=== PATIENT | female | born 1940 | race Caucasian/White ===

== ENCOUNTER → 2016-08-31 | Outpatient (CLI) | payer OTHER, BC ==
[2016-09-03 06:51] LABS: HEMOGLOBIN A1C 7.97 % (4.2-6.0); MEAN BLOOD GLUCOSE (CALC) 179.401 mg/dL
== END ==
LOC: MOB LAB 10:52
DX: E11.9 Type 2 diabetes mellitus without complications (principal); E55.9 Vitamin D deficiency, unspecified; G70.00 Myasthenia gravis without (acute) exacerbation; M81.0 Age-related osteoporosis without current pathological fracture; G62.9 Polyneuropathy, unspecified; J44.9 Chronic obstructive pulmonary disease, unspecified; F32.9 Major depressive disorder, single episode, unspecified
CPT/HCPCS: 82306; 83036; 99213; G0463

== ENCOUNTER → 2016-09-15 | Outpatient (CLI) | payer OTHER, BC | LOC: MMPC 11:11 | PROVIDERS: ATTEND Surgery | DX: K21.9 Gastro-esophageal reflux disease without esophagitis (principal); R13.19 Other dysphagia; K44.9 Diaphragmatic hernia without obstruction or gangrene | CPT/HCPCS: 99212; G0463 ==

== ENCOUNTER 2016-09-19 09:05 | Day surgery (SDC) | payer OTHER, BC ==
[~2016-09-19 09:05] MED LIST: LIDOCAINE 2% VISCOUS(20 MG/1 ML) - 15 ML UD CUP PO ONE; LIDOCAINE HCL/PF 2% (20 MG/ML) - 5 ML SYRINGE ONE; LIDOCAINE W/ SODIUM BICARB 0.5 ML SYR ONE; Lactated Ringers 1,000 ML PRIMARY IV ONE; MIDAZOLAM 5 MG/1 ML ONE; fentaNYL Inj 100 MCG/2 ML VIAL ONE
--- NOTE | 2016-09-19 10:59 | GEN.OPNOTE ---
EGD Operative Note Surgery Date: 09/19/16 Preoperative Diagnosis: Myasthenia gravis. Dysphagia. GERD. Hiatal hernia. Postoperative Diagnosis: Same. No stricture. Procedure: Esophagogastroduodenoscopy with biopsy. Surgeon: Steve Camacho MD Anesthesia Provider: Sheldon Buthcer CRNA Anesthesia Type: MAC Indications: See preoperative diagnosis. Findings: Esophagus: [Slightly tortuous. No stricture.] GE Junction : [Small hiatal hernia. No significant inflammation.] Fundus : [A few fundic gland polyps.] Body : [A few fundic gland polyps.] Prepyloric : [Mild inflammation.] Small Intestine : [Normal.] A lubricated flexible upper endoscope was inserted and passed through the esophagus and stomach into the duodenum. The duodenum and duodenal bulb were unremarkable. The pyloric channel was widely patent. There was some mild inflammation in the antrum. Multiple biopsies were taken. Hemostasis was assured. The scope was retroflexed. There are a few fundic gland polyps. There was a small 2-3 cm hiatal hernia. The scope was straightened. Air was aspirated. The scope was withdrawn into the distal esophagus. Biopsies were taken at the GE junction with her history of dysphagia and reflux. She is also on a daily proton pump inhibitor. Hemostasis was assured. The scope was withdrawn through the remainder of a normal-appearing esophagus. Specifically there were no strictures. The scope was drawn through the hypopharynx under suction completing the procedure. Patient tolerated the procedure well without complication. She was taken to outpatient surgery in stable condition. Follow-up will be with my office on an as-needed basis. We will call the biopsy results and plan therapy and follow-up accordingly. Patient should see her neurologist and consider a swallow evaluation. This was discussed with the patient and her daughter. Estimated Blood Loss (mL): 1 Fluids: 300 mL of crystalloid. Pathology: Antral biopsies and distal esophageal biopsies sent for pathologic analysis. Complications: None.
[2016-09-19 11:01] VITALS: RESP 14
[2016-09-19 13:21] VITALS: TEMP 97.9
== END 2016-09-19 12:16 | disposition home or self-care (01) ==
LOC: SDSC 09:05
PROVIDERS: ATTEND Surgery
DX: K21.9 Gastro-esophageal reflux disease without esophagitis (principal); R13.10 Dysphagia, unspecified; K44.9 Diaphragmatic hernia without obstruction or gangrene; G70.00 Myasthenia gravis without (acute) exacerbation
CPT/HCPCS: 43239; J2704; J3010; J2001; J2250; J7120

== ENCOUNTER → 2016-09-28 | Outpatient (CLI) | payer OTHER, BC ==
--- NOTE | 2016-09-28 16:02 | DI ---
LEFT WRIST, 09/28/2016 2:37 PM: Clinical History: Left wrist pain. Previous Exam: 11/12/2015; 12/26/2015. 3 views are submitted. The patient is status post resection of the trapezium, scaphoid, lunate, and t riquetrum bones with placement of a ligature between the first and second metacarpal bones. 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 The distal radius and ulna are unremarkable. There is osteoporosis. Readin. Status post resection of the proximal row of the carpal bones with placement of a ligature betwee n the base of the first and second metacarpal bones. 2. Osteoporosis.
--- NOTE | 2016-09-28 16:08 | DI ---
LEFT THUMB EXAM, 09/28/2016 2:37 PM: Clinical History: Left thumb pain. Previous Exam: None at this facility. Comparison is made with the left wrist exam obtained today. 3 views are submitted. There is no acute soft tissue, osseous, or joint abnormality. Mild degenerativ e arthritic changes are present in the metacarpophalangeal joint and the IP joint of the thumb. As pr eviously noted, there has been resection of the proximal row of the carpal bones with placement of a ligature between the base of the first and second metacarpals. There is osteoporosis. Readin. 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 2. Osteoporosis.
== END ==
LOC: ORTHO 14:48
PROVIDERS: ATTEND Orthopaedic Surgery
DX: M25.532 Pain in left wrist (principal); M79.645 Pain in left finger(s); M18.12 Unilateral primary osteoarthritis of first carpometacarpal joint, left hand; Z98.890 Other specified postprocedural states
CPT/HCPCS: 73110; 73140

== ENCOUNTER → 2016-10-11 | Outpatient (CLI) | payer OTHER, BC | LOC: MMPC 11:11 | DX: G70.00 Myasthenia gravis without (acute) exacerbation (principal); E53.8 Deficiency of other specified B group vitamins; G62.9 Polyneuropathy, unspecified; J44.9 Chronic obstructive pulmonary disease, unspecified; F32.9 Major depressive disorder, single episode, unspecified; E11.9 Type 2 diabetes mellitus without complications; M81.0 Age-related osteoporosis without current pathological fracture; K21.9 Gastro-esophageal reflux disease without esophagitis; I10 Essential (primary) hypertension | CPT/HCPCS: 99213; G0463; J3420 ==

== ENCOUNTER → 2016-11-03 | Outpatient (CLI) | payer OTHER, BC ==
[2016-11-03 10:21] LABS: BASOPHILS # (AUTO) 0.03 10*3/UL; BASOPHILS % (AUTO) 0.3 % (0-1); EOSINOPHILS % (AUTO) 3.7 % (0-8); HEMATOCRIT 42.2 % (37.0-47.0); HEMOGLOBIN 13.5 g/dL (12.0-16.0); IMM GRAN % (AUTO) 0.2 % (0-5); IMM GRAN# (AUTO) 0.02 10*3/UL; LYMPHOCYTES # (AUTO) 1.86 10*3/uL; LYMPHOCYTES % (AUTO) 21.3 % (10-50); MEAN CORPUSCULAR HEMOGLOBIN 27.6 PG (27-31); MEAN PLATELET VOLUME 9.4 FL (7.4-12.2); MONOCYTES % (AUTO) 5.7 % (5-15); NEUTROPHILS # (AUTO) 6.02 10*3/UL; NEUTROPHILS % (AUTO) 68.8 % (50-80); RDW COEFFICIENT OF VARIATION 15.3 % (11.5-14.5); RED BLOOD COUNT 4.89 10^6/uL (4.20-5.40); WHITE BLOOD COUNT 8.75 10^3/uL (4.8-10.8)
[2016-11-03 10:22] LABS: PLATELET MORPHOLOGY COMMENT NORMAL MORPHOLOGY (NORM)
[2016-11-03 10:35] LABS: BILIRUBIN,TOTAL 0.6 mg/dL (0.3-1.2); CALCIUM 9.4 mg/dL (8.7-10.7); POTASSIUM 4.1 meq/L (3.8-5.2); TOTAL PROTEIN 7.2 g/dL (6.1-8.0)
== END ==
LOC: LAB 10:09
PROVIDERS: ATTEND Internal Medicine Medical Oncology
DX: G70.00 Myasthenia gravis without (acute) exacerbation (principal)
CPT/HCPCS: 36415; 80053; 85025

== ENCOUNTER → 2016-11-30 | Outpatient (CLI) | payer OTHER, BC ==
[2016-11-30 11:15] LABS: BASOPHILS # (AUTO) 0.03 10*3/UL; BASOPHILS % (AUTO) 0.3 % (0-1); EOSINOPHILS # (AUTO) 0.18 10*3/UL; EOSINOPHILS % (AUTO) 1.8 % (0-8); HEMATOCRIT 42.7 % (37.0-47.0); HEMOGLOBIN 13.9 g/dL (12.0-16.0); LYMPHOCYTES # (AUTO) 2.12 10*3/uL; MEAN CORPUSCULAR HEMOGLOBIN 28.4 PG (27-31); MEAN CORPUSCULAR HGB CONC 32.6 g/dL (33-37); MEAN CORPUSCULAR VOLUME 87.3 FL (81-99); MEAN PLATELET VOLUME 9.5 FL (7.4-12.2); MONOCYTES # (AUTO) 0.69 10*3/UL (0.3-0.8); MONOCYTES % (AUTO) 7.1 % (5-15); NEUTROPHILS # (AUTO) 6.74 10*3/UL; NEUTROPHILS % (AUTO) 68.9 % (50-80); RED BLOOD COUNT 4.89 10^6/uL (4.20-5.40)
[2016-11-30 11:17] LABS: PLATELET MORPHOLOGY COMMENT NORMAL MORPHOLOGY (NORM); RBC MORPHOLOGY COMMENT NORMAL MORPHOLOGY (NORM); WBC MORPHOLOGY COMMENT NORMAL MORPHOLOGY (NORM)
[2016-11-30 11:30] LABS: BUN/CREATININE RATIO 21.81 (6-20); CALCIUM 9.5 mg/dL (8.7-10.7)
== END ==
LOC: LAB 10:43
PROVIDERS: ATTEND Internal Medicine Medical Oncology
DX: G70.00 Myasthenia gravis without (acute) exacerbation (principal)
CPT/HCPCS: 36415; 80053; 85025

== ENCOUNTER → 2016-12-06 | Outpatient (CLI) | payer OTHER, BC | LOC: MMPC 11:11 | DX: G70.00 Myasthenia gravis without (acute) exacerbation (principal); E11.9 Type 2 diabetes mellitus without complications; E78.5 Hyperlipidemia, unspecified; E53.8 Deficiency of other specified B group vitamins; F32.9 Major depressive disorder, single episode, unspecified; J44.9 Chronic obstructive pulmonary disease, unspecified; K21.9 Gastro-esophageal reflux disease without esophagitis; M81.0 Age-related osteoporosis without current pathological fracture; I10 Essential (primary) hypertension | CPT/HCPCS: 99213; G0463; J3420 ==